=== PATIENT | male | born 1955 | race Caucasian/White ===

== ENCOUNTER 2023-06-03 23:03 | Emergency (ER) | payer MEDICARE, MEDICAID, SELFPAY ==
--- NOTE | 2023-06-03 23:22 | ED_ITS ---
HPI - CPR General: Stated Complaint: RESP. DISTRESS Time Seen by Provider: 06/03/23 23:21 History of Present Illness: Patient presented to the ER with CPR in progress. According to the EMS when they got there the patient was in severe respiratory distress tripoding they administered a breathing treatment and when he got in the ambulance he went asystolic. They inserted an i-gel and he started doing chest compressions. They started ACLS measures where they gave him multiple rounds of epi on route to the ER. When he arrived to ER he was still asystolic CPR was still in progress. I gel was in place. See EMS report for specifics. Review of Systems General: Reports: ROS unobtainable due to medical condition Physical Exam Narrative: EXAM NARRATIVE: Patient arrived to the ER with Igel in place asystolic. Patient was apneic and asystolic. ACLS measures were performed. History was obtained through paramedics. Const: EXAM LIMITATIONS: physical limitations (Patient cardiopulmonary arrest with i-gel in place) HENMT: COMMON NORMALS: normocephalic, atraumatic, moist oral mucous membranes and oropharynx normal HEAD & SCALP: normocephalic and atraumatic Eye: OTHER: Pupils dilated unresponsive to light Chest: COMMONS NORMALS: normal inspection of the chest and normal palpation of entire chest wall Resp: OTHER: Bilateral breath sounds noted after ET was placed. Patient apneic. Easily bagged by BVM and respiratory therapy Cardio: OTHER: Patient continued pulseless the entire time with episodes of coarse V-fib on the monitor. Neuro: OTHER: Unresponsive to painful stimuli, apneic, asystolic Procedures Intubation sedative: other (None) paralytic: other (None) Laryngoscope: fiber optic video scope ET Tube Size: 8 Tube Secured Depth (cm): 26 Tube Secured Location: lips Tube Placement Confirmation: visualized tube passing through cords, equal breath sounds bilaterally and no breath sounds over epigastrium Patient Tolerated Procedure: well and no complications MDM - Cardiac Arrest/CPR Medical Decision Making Patient presented to the ER in full arrest with CPR in progress. Upon arrival the i-gel was switched out for ET tube with no complications. Patient was noted to be in coarse V-fib multiple times. He received multiple shocks. He received approximately another 5 doses of epi, 2 of bicarb, 1 of calcium, 300 of amiodarone. With no change in response. 2 patient's sons presented to the ER and they called 2 more sons by phone and we discussed patient's grave symptoms and the unlikelihood of his spontaneous improvement. It was decided to stop life altering measures. Time of was called at 2114. Medical Records I reviewed the patient's medical records. Lab Data I reviewed the patient's lab results. No radiology studies performed this visit Critical Care Time Critical Care Time: Critical Care Time: Yes Total Critical Care Time: 30 Attestation: The patient was emergently evaluated this patient's presentation and case had a high probability of a clinically significant, sudden, or life-threatening deterioration of the patient's initial critical presentation or condition which required my full and direct attention, intervention and personal management. Discharge Plan Discharge Patient Disposition: Clinical Impression: Cardiopulmonary arrest Condition: Coding Level of Care Code ED [employer] for [place] [employer]
--- NOTE | 2023-06-03 23:28 | PC.NURSE ---
224 pt arrived cpr in progess 2249 pulse check- vfib 2250 bicarb x1 225 epi x1 2251 pulse check - vfib 2252 vfib-shock @ 200 2253 bicarb, pulse check: asystole 2253 epi x1 2255 pulse check-coarse vfib, shock at 200 2256 epi x1, 1 amp ca chloride 2258 pulse check coarse vfib-shock 2300 coarse vfib, epi x1, shock 2302 pulse check - coarse vfib 230 epi x1 bg 394 2304 amio 300mg. pulse check- coarse vfib- no pulse 2305 pulse [id number] 2306 epi x1 2308 pulse check- no pulse, fine vfib-shock 2310 pulse check, no pulse. fine vfib- epi x1 2312 no pulse shock, coarse vfib. 2313 epi x1 2314 pulse check-fine vfib 2315 TOD
--- NOTE | 2023-06-03 23:29 | PC.NURSE ---
VITALS RECORDED: 2249: HR 102, SPO2 75, RR 11 2253: HR 143, BP 195/163, SPO2 68 2254: SPO2 76, RR 16 2255: BP 64/39 2299: HR 108, SPO2 78 2301: HR 91, BP 101/57, SPO2 78 2304: HR 117, SPO2 89 230: BP 61/96, SPO2 83 2310: BP 180/113
--- NOTE | 2023-06-03 23:36 | PC.NURSE ---
[facility].
--- NOTE | 2023-06-03 23:59 | PC.NURSE ---
MTS has been notified, patient is a possible candidate, MTS needs to do further screening before approaching family.
--- NOTE | 2023-06-04 00:45 | PC.NURSE ---
Pt family has patients watch, shorts, and house shoes. No other jewelry or items noted on or with patient.
--- NOTE | 2023-06-04 02:00 | PC.NURSE ---
Ge time 0200
--- NOTE | 2023-06-04 04:30 | PC.NURSE ---
MTS called back, family has agreed to donation.
== END 2023-06-04 02:10 | disposition expired ==
PROVIDERS: Emergency Provider Emergency Medicine
DX: I46.9 Cardiac arrest, cause unspecified (principal)
CPT/HCPCS: 31500; 99285; J0171; J0282; J3490